=== PATIENT | female | born 1995 | race Two or more races ===

== ENCOUNTER 2022-03-17 19:15 | Emergency (ER) | payer SELFPAY ==
[~2022-03-17] VITALS: Ht 162.6 cm; Wt 90.9 kg
[2022-03-17] MEDS ORDERED: cloNIDine HCL 0.1 MG TAB PO ONE ×2 (20:15→21:30)
[2022-03-17 22:13] VITALS: BP 163/111
== END 2022-03-17 22:16 | disposition home or self-care (01) ==
LOC: EDBD 19:15 → ER 19:20
DX: I10 Essential (primary) hypertension (principal)